=== PATIENT | male | born 1980 | race Caucasian/White ===

== ENCOUNTER 2016-08-03 06:23 | Emergency (ER) | payer OTHER ==
[~2016-08-03] VITALS: Ht 177.8 cm; Wt 79.9 kg
[~2016-08-03 06:23] MED LIST: TRAM-10 PO
[2016-08-03 06:26] VITALS: BP 145/91; PULSE 67; TEMP 36.7; O2SAT 100; Ht 177.8 cm; Wt 79.9 kg
[2016-08-03] MEDS ORDERED: CEFTRIAXONE SOD 350MG/ML 1 GM VIAL IM STA (06:49)
[2016-08-03] MEDS ORDERED: OXYC-57 PO (06:55)
[2016-08-03] MEDS ORDERED: PENI-82 PO (06:55)
[2016-08-03] MEDS ORDERED: PERCOCET HOME PACK PO ONE (07:00)
[2016-08-03] MEDS ORDERED: OXYCODONE/ACETAMINOPHEN 5-325 TAB PO ONE (07:00)
--- NOTE | 2016-08-03 07:10 | EMERGENCY ROOM VISIT NOTE ---
History First contact with patient: 06:49 Chief Complaint: DENTAL PAIN Stated Complaint: ABSCESSED TOOTH Nursing Triage Summary: tooth pain on right bottom, started Wednesday. contacted dentist, has appointment Tomorrow. today swelling started in R face. pt concerned for abcess. History of Present Illness The patient is a 35 year old male who presents to the Emergency Room with complaints of right sided dental pain. The patient initially broke his right second premolar tooth on Wednesday while eating. He was initially able to eat with minimal pain, but on Wednesday the pain acutely worsened and was worried the nerve began to be exposed. The patient went to see a dentist at the time but he was unable to obtain an appointment until Wednesday. Over the weekend he began to notice increased swelling on the right side of his jaw and mouth surrounding the tooth. The pain continued to worsen and the size of the swelling around his jaw continued to increase so he decided to come in this morning. He has 10/10 pain when he bites down or presses on the infected area. He denies any headache , fevers, chills, trismus, sore throat, pain with swallowing, or difficulties breathing. Review of Systems See HPI for pertinent positives and negatives. A total of ten systems were reviewed and were otherwise negative. Past Medical/Surgical History Medical Problems: (1) Chronic left cervical radiculitis Surgical Problems: (1) No history of previous surgery Family History No significant family history Social History Smoking Status: Current Every Day Smoker Alcohol Use: none Marital Status: single Housing Status: lives with family Occupation Status: employed Current/Historical Medications Scheduled PRN Tramadol (Ultram), 1-2 TAB PO Q4H PRN for Pain Allergies Coded Allergies: Hydrocodone (Verified Adverse Reaction, Unknown, nausea, 02/10/16) Physical Exam Vital Signs Date Time Temp Pulse Resp B/P Pulse Ox O2 Delivery O2 Flow Rate FiO2 08/03/16 06:26 36.7 67 18 145/91 100 Room Air Physical Exam GENERAL: Awake, alert, in mild distress HENT: Normocephalic, atraumatic. JAW: Right jaw has non fluctuant abscess that is tender to touch, indurated, located from the angle of the jaw to the midline, the abscess does not extend to the neck. MOUTH: Tongue does not appear to be swollen, right gums appear to have a white line below the gum line 2/2 patient pressing on the infected region of the jaw DENTAL: Right Second Premolar appears broken with granulation tissue over the tooth EYES: Normal conjunctiva. Sclera non-icteric. NECK: Supple. No nuchal rigidity. Trachea midline SKIN: See above, no visible rash or abrasions Medical Decision & Procedures Medical Decision Patient is a 35 year old male that presents with right jaw pain Differential Diagnosis: Right Jaw Abscess, Dental Trauma, Dental Danii, Jaw Trauma - Patient appears to have non fluctuant right jaw abscess - Patient is afebrile and abscess in nonfluctuant so drainage would not be therapeutic - Penicillin for the infection - Percocet for pain Impression Primary Impression: Abscess, jaw Departure Information Dispostion Home / Self-Care Condition GOOD Referrals No Doctor, Assigned (PCP) Patient Instructions [facility]
--- NOTE | 2016-08-03 07:33 | EMERGENCY ROOM VISIT NOTE ---
ED Visit Note First contact with patient: 06:32 Resident Physician Supervision Note: Dr. Luc Colbert was resident physician during care of patient. I separately evaluated patient and did history and exam. I discussed the case with the resident and generally agree with the findings and plan. Pleasant 35 yr old male with recent dental fracture and now large swelling right lower jaw. TTP without significant erythema. There is no fluctuance nor evidence of abscess having yet formed. No area of drainage possible at this time. Some white discoloration of right lower lateral gum line which I advised follow up with dentistry, though he notes this started after pressing hard on outside of face. I did discuss my concerns that with his chewing tobacco use. There is clearly dental infection, unfortunately it is just too early to drain. Discussed possibility that in 1 to 2 days may form drainable abscess. In effort to try and avoid this will start with IM Rocephin and QID PenVK. Will give Percocet as clearly this is uncomfortable. PDMP with single Tramadol Rx 6 months ago. Stable and otherwise not septic. No evidence of submental infection, nor evidence of posterior pharyngeal involvement. Clearly currently localized. Discussed at length symptoms/findings requiring return. Has dental appointment planned for tomorrow. Diagnosis: Infected Dental Cavity Facial Swelling Dental Fracture Documented By: Luis Armando Raman MD
--- NOTE | 2016-08-04 16:53 | Pharmacy Progress Note ---
ED Pharmacist Progress Note Date of Service: August 04, 2016. RPh from [place] [facility] called asking if it's ok to substitute penicillin v potassium 500mg for Veetids 500mg. I advised RPh that they are equivalent and that substitution is permitted.
== END 2016-08-03 07:12 | disposition home or self-care (01) ==
LOC: C.EDB 06:24
DX: K04.7 Periapical abscess without sinus (principal); R22.0 Localized swelling, mass and lump, head; S02.5XXA Fracture of tooth (traumatic), initial encounter for closed fracture; X58.XXXA Exposure to other specified factors, initial encounter; F17.200 Nicotine dependence, unspecified, uncomplicated